=== PATIENT | female | born 1955 | race Caucasian/White ===

== ENCOUNTER 2023-09-23 15:13 | Emergency (ER) | payer MEDICARE ==
[~2023-09-23] VITALS: Ht 167.6 cm; Wt 68.0 kg
[2023-09-23 15:37] LABS: BASOPHILS ABSOLUTE AUTO 0.03 K/mm3 (0.00-0.23); BASOPHILS PERCENT AUTO 0 % (0-2); EOSINOPHILS PERCENT AUTO 0 % (0-6); Hemoglobin 14.1 g/dL (11.5-16.0); IMMATURE GRAN ABSOLUTE AUTO 0.04 K/mm3 (0.00-0.10); IMMATURE GRAN PERCENT AUTO 0 % (0-1); LYMPHOCYTES ABSOLUTE AUTO 0.77 K/mm3 (0.84-5.20); LYMPHOCYTES PERCENT AUTO 8 % (21-46); MONOCYTES ABSOLUTE AUTO 0.77 K/mm3 (0.16-1.47); MONOCYTES PERCENT AUTO 8 % (4-13); Mean Corpuscular HGB 28.6 pg (26.0-34.0); Mean Corpuscular Volume 89 fL (80-100); NEUTROPHILS ABSOLUTE AUTO 8.11 K/mm3 (1.96-9.15); NEUTROPHILS PERCENT AUTO 84 % (41-73); Platelet Count 354 K/mm3 (150-400); RDW Coefficient Variation 12.7 % (11.7-14.2); RDW Standard Deviation 41.7 fL (35.1-46.3); Red Blood Cell Count 4.93 M/mm3 (3.80-5.20); White Blood Cell Count 9.72 K/mm3 (4.00-11.30)
[2023-09-23 15:39] LABS: Bicarbonate Venous 32.5 mmol/L (24.0-30.0); PCO2 Venous 70.6 mmHg (38-42); pH Blood Venous 7.34 (7.34-7.37)
[2023-09-23 15:58] LABS: Albumin, Blood 3.4 g/dL (3.4-5.0); Albumin/Globulin Ratio 0.7 (0.8-1.8); Bilirubin, Total 0.5 mg/dL (0.1-1.0); Bun/Creatinine Ratio 21.3 (12.0-20.0); Calcium, Blood 9.8 mg/dL (8.5-10.1); Creatinine, Blood 0.56 mg/dL (0.40-1.00); Potassium, Blood 3.5 mmol/L (3.5-5.5); Total Protein, Blood 8.4 g/dL (6.4-8.2)
[2023-09-23] MEDS ORDERED: Albuterol 2.5 MG/3 ML VIAL INH SCH (16:00)
[2023-09-23] MEDS ORDERED: MethylPREDNISolone Sod Succ 125 MG Vial IV ONE (16:00)
[2023-09-23] MEDS ORDERED: ZOLOFT10013 PO (16:09)
[2023-09-23] MEDS ORDERED: Ventolin/Prove6.7 GM INH (16:09)
[2023-09-23] MEDS ORDERED: TRELEGY ELLIPT1 EACH IH (16:09)
[2023-09-23] MEDS ORDERED: Albuterol 2.5 MG/3 ML VIAL INH ONE (17:00)
[2023-09-23] MEDS ORDERED: Magnesium Sulf 2 GM/Water 50ML 50 ML IV ONE (17:00)
[2023-09-23] MEDS ORDERED: NS 1,000 ML IV SCH (21:00)
[2023-09-23 21:56] LABS: Influenza A, PCR NEGATIVE (NEGATIVE); Influenza B, PCR NEGATIVE (NEGATIVE); Resp Syncytial Virus, PCR NEGATIVE (NEGATIVE); SARS-Cov-2 (COVID-19) PCR, MMC NEGATIVE (NEGATIVE)
[2023-09-23] MEDS ORDERED: Azithromycin 250 MG Tab PO ONE (22:00)
[2023-09-23] MEDS ORDERED: AZIT250 PO (22:04)
[2023-09-23] MEDS ORDERED: PRED20 PO (22:04)
== END 2023-09-23 22:40 | disposition home or self-care (01) ==
LOC: ER 15:13
PROVIDERS: Emergency Medicine; Physician Assistant
DX: J44.1 Chronic obstructive pulmonary disease with (acute) exacerbation (principal)
CPT/HCPCS: 0241U; 71046; 80053; 82803; 83880; 84484; 85025; 93005; 93010; 94644; 94645; 94664; 96361; 96365; 96366; 96375; 99285-25; A9270; J2930; J3475; J7030